=== PATIENT | female | born 1960 ===

== ENCOUNTER 2021-01-29 08:18 | Outpatient (CLI) | payer OTHER ==
--- NOTE | 2021-01-29 08:57 | SLEEP CARE CONSULTATION ---
Information from patient questionnaire entered by Nanda Moran. I have reviewed and concur with the information entered by Nanda Moran. This document represents the service I personally performed and the decisions made by me, Renee Pascal ARNP. History of Present Illness Service Date and Time: 01/29/2021 0818 Reason for Visit: New patient, Previously diagnosed sleep apnea (severe - AHI - 33.1 in 2017), sleep apnea on CPAP therapy Chief Complaint: reports: Other (renew APAP/Apnea diagnosis) Usual bedtime: 10:30 - 11:30 pm Time it takes to fall asleep: 5-15 minutes Snores at night: Yes Observed to quit breathing while asleep: No Sleeps alone due to snoring: No Number of times waking at night: 3-6 Reasons for waking at night: reports: Pain, Other (feel hot/cold due to room temp, mask feels hot/uncomfortable) Toss, Turn, or Twitch while sleeping: Yes Recalls having dreams: Yes Usually gets out of bed at: 5:30 - 6:30 am Morning headache: No Sleepy or fatigued during the day: Yes Ever fallen asleep while driving: No Takes day naps: No Dreams during day naps: No Prior sleep studies: Yes Year and Where: 2017 - [facility] Type of Sleep Study: Polysomnography Additional HPI information: LAURA ROMERO was previously diagnosed to have severe, AHI 33.1, obstructive sleep apnea-hypopnea syndrome and comes in today to establish care for CPAP therapy. - Parasomnia Symptoms Ever been unable to move upon waking from sleep: No Walks in sleep: No Talks in sleep: No Ever acted out dreams in sleep: No Ever felt weak in the knees when startled or emotional: No Bothered by creepy, crawly, restless sensations in legs: No Problems with memory or concentration: No CPAP Compliance Data - Data Reviewed with Patient Average duration of nightly device use: 5 hours 22 minutes Compliance rate %: 75 (180 days) Current pressure setting (cmH2O): 5-12 Average residual AHI: 0.9 Central apnea: 0.2 Obstructive apnea: 0.4 Compliance data discussion: She was getting her supplies at [facility] and she would like to change to new DME. She is using a full face Dreamwear mask. She has not changed her mask for 18 months. Subjective Missed days of use due to: reports: family emergency (taking care of mother on hospice), other (falls asleep on couch/chair without it) Patient concerns: reports: mask discomfort, mask leak noise, condensation in mask/hose (occasionally, just adjusts as needed), nasal congestion (little with weather changing), dry mouth, nose, throat (little with weather changing). denies: aerophagia, air blowing in eyes, epistaxis, other Observed to snore while using device: No Current pressure setting perceived as: comfortable On therapy, patient: reports: sleeping better, awakening more refreshed, being more awake and alert during the day, more rested overall. denies: drowsiness while driving Initial [place] Sleepiness Scale score: 6 (in 2020) Past Medical History Past Medical History: reports: Hypertension, Arthritis (back), Other (2 C-sec tions) Social History The patient's occupation is a [employer]. Patient is and lives in [place]. Have you smoked in the past 12 months: No Alcohol use: Yes Alcohol amount and frequency: 1-2 glasses of wine 1-2 times a month Caffeine use: Yes Caffeine amount and frequency: 1-2 cups coffee daily Family History Family history of sleep disordered breathing: Yes Family Hx Sleep Apnea: Mother: Snoring (daughter, son), Father: Snoring, Other: Snoring Allergies and Home Medications Drug allergies reviewed: Yes (Sulfa) Home medication list reviewed: Yes Allergy and home medication list: Lisinopril Methocarbamol naproxen, as needed for back strain Review of Systems Weight gain over past 5 years: 25 Cardiovascular: reports: high blood pressure Gastrointestinal: denies: heartburn Neurological: denies: headaches Psychiatric: denies: anxiety, depression Ear/Nose/Throat: reports: wisdom teeth removed (two taken out). denies: tonsillectomy Endocrine: denies: sluggishness Musculoskeletal: reports: back pain Immunologic: reports: sneezing Physical Exam Heart Rate: 77 O2 Saturation: 98 Height: 5 ft 7 in Weight: 202 lb Body Mass Index: 31.6 BMI Classification: Obese Impression and Plan 1. Obstructive Sleep Apnea-Hypopnea Syndrome, severe, with good treatment compliance and good apnea control. On CPAP therapy, the patient has better sleep quality and is more rested overall. Patient is plan has been consistently using her CPAP machine. Patient needs prescription to be able to update her supplies. She would like to transfer to a new to DME company because the last one she is not satisfied with their service. I will write for a DME transfer and update of supplies. We also discussed that she is eligible next month for a updated machine. She may contact our office if she so decides to update her machine in the next couple of months. I did discuss with her that she will have to have a follow-up after updating the machine but other than that she is good for a yearly follow-up. I will have my supply chain coordinator inform of DME options. A [facility] prescription will then be made. Patient advised to contact this office if further supply problems. Patient's apnea severity and rationale for treatment to reduce apnea, improve sleep quality and reduce cardiovascular and cerebrovascular events was reviewed. I also reviewed the benefit of consistent device use of CPAP for hypertension. * Continue auto CPAP pressure at 5-12 cmH2O * Transfer DME and update supplies * Notify me if snoring with mask or feeling that the pressure is too much or too little * Attempt to lose weight * Call this office if any problems using CPAP * Return for follow up in 1 year, or sooner if concerns arise Counseling Topics: Spare mask, Weight loss health impact Visit Type: In Office Time Spent with Patient (minutes): 30 Provider Statement: I spent 100% of the Face to Face Visit with the patient with greater than 50% spent counseling the patient and coordination of care.
== END 2021-01-29 08:19 | disposition home or self-care (01) ==
LOC: SC 08:18
PROVIDERS: ATTEND Nurse Practitioner Family
DX: G47.33 Obstructive sleep apnea (adult) (pediatric) (principal); E66.8 Other obesity; Z68.31 Body mass index [BMI] 31.0-31.9, adult
CPT/HCPCS: 99203; 99212

== ENCOUNTER 2022-07-07 08:00 | Outpatient (CLI) | payer OTHER | END 2022-07-07 23:59 | disposition home or self-care (01) | LOC: LAB 08:00 | PROVIDERS: ATTEND Physician Assistant Medical | DX: R39.9 Unspecified symptoms and signs involving the genitourinary system (principal) | CPT/HCPCS: 87077; 87086; 87181 ==